=== PATIENT | female | born 1975 | race Caucasian/White ===

== ENCOUNTER 2017-04-30 15:25 | Emergency (ER) | payer OTHER ==
[~2017-04-30] VITALS: Ht 177.8 cm; Wt 93.4 kg
[2017-04-30] MEDS ORDERED: KEFLEX500 MG PO (16:22)
[2017-04-30] MEDS ORDERED: PREDNISONE10 MG PO (16:22)
[2017-04-30] MEDS ORDERED: BACTRIM,SEPT1 TABLET PO (16:22)
[2017-04-30] MEDS ORDERED: KETOCONAZOLE60 GM TP (16:22)
[2017-04-30 16:56] VITALS: BP 00/00
== END 2017-04-30 17:18 | disposition home or self-care (01) ==
LOC: EME 15:25 → EXP 15:25
DX: L25.9 Unspecified contact dermatitis, unspecified cause (principal); B36.9 Superficial mycosis, unspecified
CPT/HCPCS: 99281; 99284; J1100